=== PATIENT | male | born 1990 | race Caucasian/White ===

== ENCOUNTER 2025-05-25 08:18 | Emergency (ER) | payer OTHER, SELFPAY ==
[2025-05-25 08:56] LABS: #Basophils 0.08 10x3/uL (0.0-0.2); #Eosinophils 0.23 10x3/uL (0.0-0.5); #Monocytes 0.65 10x3/uL (0.0-1.1); #Neutrophils 3.42 10x3/uL (1.5-8.4); %Basophils 1.0 % (0.0-2.0); %Eosinophils 2.9 % (0.0-6.0); %Lymphocytes 44.2 % (18.0-47.0); %Monocytes 8.2 % (0.0-10.0); %Neutrophils 42.9 % (40.0-75.0); Hematocrit 42.2 % (38.8-50.0); Hemoglobin 14.3 g/dL (13.5-17.5); Mean Corpuscular Hemoglobin 30.8 pg (27.0-33.0); Mean Corpuscular Volume 90.9 fL (81.2-95.1); Platelet Count 252 10x3/uL (150-450); Red Blood Cell (RBC) Count 4.64 10x6/uL (4.32-5.72); White Blood Cell (WBC) Count 7.95 10x3/uL (3.5-10.5)
[2025-05-25 09:15] LABS: ALT (SGPT) 34 U/L (Less than 45); AST (SGOT) 29 U/L (11-34); Albumin 4.7 g/dL (3.1-4.5); Alkaline Phosphatase 90 U/L (40-110); Anion Gap 8 mmol/L (10-20); BUN (Urea Nitrogen) 18 mg/dL (8.9-20.6); Bilirubin, Total 0.3 mg/dL (0.3-1.2); Calc. Creatinine Clearance 0 mL/min (70-130); Calcium 8.6 mg/dL (7.8-10.44); Carbon Dioxide 25 mmol/L (22-29); Chloride 109 mmol/L (98-107); Globulin 3.3 g/dL (2.4-3.5); Glucose 76 mg/dL (70-105); Lipase 56 U/L (8-78); Potassium 4.4 mmol/L (3.5-5.1); Sodium 138 mmol/L (136-145)
[2025-05-25 09:34] LABS: INR-International Normal Ratio 0.9; Prothrombin Time 10.3 sec (9.5-12.1)
== END 2025-05-25 10:37 | disposition home or self-care (01) ==
LOC: CSHERS 08:18
DX: R10.84 Generalized abdominal pain (principal); K92.1 Melena; K64.4 Residual hemorrhoidal skin tags; I10 Essential (primary) hypertension; F17.290 Nicotine dependence, other tobacco product, uncomplicated; Z79.899 Other long term (current) drug therapy
CPT/HCPCS: 36415; 74177; 80053; 83690; 85025; 85610; 96374; 96375; J2270